=== PATIENT | male | born 1980 | race Caucasian/White ===

== ENCOUNTER 2022-01-04 03:00 | Emergency (ER) | payer MEDICAID ==
[2022-01-04] MEDS ORDERED: HYDROmorphone 2 MG/ML Syringe IVPUSH ONE ×2 (03:22→03:32)
[2022-01-04] MEDS ORDERED: Ondansetron 4 MG/2 ML SDV IVPUSH ONE (03:33)
[2022-01-04] MEDS ORDERED: Acetaminophen/oxyCODONE 325-5 MG Tab ONE (05:30)
[2022-01-04] MEDS ORDERED: Ketorolac 60 MG/2 ML SDV IVPUSH ONE (05:40)
[2022-01-04] MEDS ORDERED: Ketorolac 30 MG/ML SDV ONE (05:42)
== END 2022-01-04 05:45 | disposition home or self-care (01) ==
LOC: LB.ED 03:00
DX: K81.9 Cholecystitis, unspecified (principal)
CPT/HCPCS: 36415; 71250; 74176; 80053; 81001; 83690; 84484; 85025; 93005; 96374; 96375; 99284; A9270; J1170; J1885; J2405